=== PATIENT | male | born 1950 | race Caucasian/White ===

== ENCOUNTER 2025-03-07 13:43 | Emergency (ER) | payer OTHER, SELFPAY ==
[2025-03-07 13:46] VITALS: BP 126/94
[2025-03-07 13:48] VITALS: BP 119/76
[2025-03-07 14:00] VITALS: BP 115/80
[2025-03-07 14:12] LABS: Hematocrit 41.9 % (39.0-52.0); Hemoglobin 15.3 g/dL (13.0-18.0); Mean Corp Hgb Conc. 36.5 g/dL (33.0-37.0); Mean Corpuscular Volume 94.4 fL (80.0-94.0); Nucleated Red Blood Cells % 0 % (-); Platelet Count 135 10^3/uL (130-400); Red Cell Dist. Width 12.0 % (11.5-14.5)
[2025-03-07 14:29] LABS: ALT (SGPT) 18 U/L (0-50); AST (SGOT) 20 U/L (17-59); Albumin 3.9 g/dl (3.5-5.0); Alkaline Phosphatase 43 U/L (38-126); Blood Urea Nitrogen 31 mg/dl (9-20); Calcium 9.0 mg/dl (8.4-10.2); Carbon Dioxide 22 mmol/L (22-30); Chloride 109 mmol/L (98-107); Glucose 107 mg/dl (70-99); Potassium 3.8 mmol/L (3.5-5.1); Sodium 138 mmol/L (135-145); Total Protein 6.3 g/dl (6.3-8.2); eGFR 52.41
[2025-03-07 14:32] LABS: INR 1.15; PT 15.0 Sec (11.4-14.6)
[2025-03-07 15:00] VITALS: BP 126/98
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
[2025-03-07 16:00] VITALS: BP 115/84
[2025-03-07 16:27] LABS: Magnesium 1.8 mg/dl (1.6-2.3)
[2025-03-07 16:56] LABS: Troponin I < 0.012 ng/ml
[2025-03-07 17:00] VITALS: BP 125/89
== END 2025-03-07 18:30 | disposition home or self-care (01) ==
LOC: EMR 13:43
PROVIDERS: Physician Assistant; Student in an Organized Health Care Education/Training Program; EMERGENCY PHYSICIAN Emergency Medicine
DX: S50.811A Abrasion of right forearm, initial encounter (principal); S70.211A Abrasion, right hip, initial encounter; V22.49XA Other motorcycle driver injured in collision with two- or three-wheeled motor vehicle in traffic accident, initial encounter; R55 Syncope and collapse; E78.5 Hyperlipidemia, unspecified; I10 Essential (primary) hypertension; I48.91 Unspecified atrial fibrillation
CPT/HCPCS: 99284; 70450; 72125; 80053; 83735; 84484; 85025; 85610; 93005